=== PATIENT | female | born 1965 | race Caucasian/White ===

== ENCOUNTER 2023-04-10 17:28 | Day surgery (SDC) | payer OTHER, SELFPAY ==
[2023-04-10] VITALS (25 sets, daily range): BP systolic 69–114; BP diastolic 44–69; PULSE 63–81; RESP 16–18; TEMP 36.6–36.7; O2SAT 95–100; BMI 21.3; BMI 22.4
[2023-04-10] MEDS: 0.9 % SODIUM CHLORIDE 1000 ml 1,000 ML IV (17:53)
[2023-04-10] MEDS: HYDROmorphone 0.5 mg/0.5 ml inj IVP ×3 (17:54→22:00)
[2023-04-10] MEDS: ONDANSETRON 2 MG/ML inj 4 MG IVP (17:54)
--- NOTE | 2023-04-10 17:55 | CRLHL7_ITS ---
For Patients: As a result of the Century Cures Act, medical imaging exams and procedure reports are released immediately into your electronic medical record. You may view this report before your referring provider. If you have questions, please contact your health care provider. Indication: Fall Technique: Three views of the left wrist Comparison: None. Findings/Impression: There is a predominantly transverse, comminuted fracture of the distal radial metaphysis with mild impaction and dorsal displacement of the distal fracture segments. There is intra-articular extension of some of the fracture. Minimally displaced ulnar styloid process fracture. No suspicious osseous lesions. Moderate soft tissue swelling about the wrist. Dictated by Delio Prado MD @ 04/10/2023 7:47:08 PM (Electronically Signed)
--- NOTE | 2023-04-10 17:55 | CRLHL7_ITS ---
For Patients: As a result of the Cures Act, medical imaging exams and procedure reports are released immediately into your electronic medical record. You may view this report before your referring provider. If you have questions, please contact your health care provider. Indication: Fall Technique: Three views of the right wrist Comparison: None. Findings/Impression: There is a predominantly transverse, comminuted fracture of the distal radial metaphysis with moderate impaction and no significant dorsal/ventral displacement of the distal fracture segments. There is intra-articular extension of the fracture. Minimally displaced ulnar styloid process fracture. No suspicious osseous lesions. Mild soft tissue swelling about the wrist. Dictated by Delio Prado MD @ 04/10/2023 7:48:52 PM (Electronically Signed)
--- NOTE | 2023-04-10 18:00 | ED_ITS ---
HPI - General Adult General Chief complaint: Extremity Pain/Injury, Upper Stated complaint: injured wrists after fall Time Seen by Provider: 04/10/23 17:44 History of Present Illness HPI narrative: This 58-year-old female comes in with injury to both wrists that occurred just prior to arrival. She was outside and slipped on some ice and fell onto her outstretched hands. She has a deformity he obviously in her left wrist but also has suspicion of fracture in the right wrist. She denies hitting her head or having any other injury. She states that she last ate about 3 hours prior to arrival. Related Data Home Medications Medication Instructions Recorded Confirmed No Known Home Medications 04/10/23 04/10/23 Allergies Allergy/AdvReac Type Severity Reaction Status Date / Time No Known Drug Allergies Allergy Verified 04/10/23 17:54 Review of Systems Status of ROS: Reports: 10 or more systems reviewed and unremarkable except as noted in History and below Narrative: Constitutional: No fevers, no weight gain or loss. Eyes: No discharge. No vision changes. HENT: No congestion, no sore throat, no ear pain. Cardiovascular: No chest pain, no palpitations. Respiratory: No shortness of breath, no wheezes, no cough. Gastrointestinal: No abdominal pain, no vomiting, no diarrhea. Genitourinary: No dysuria, no hematuria. Musculoskeletal: Bilateral wrist injuries. Skin: No rashes, no pruritis. Neurological: No dizziness, weakness, sensory change, speech change. Endo/Heme/Allergies: No bruising or bleeding. No polydipsia. Pysch: no suicidality, no anxiety, no insomnia. All other systems reviewed and are negative. Exam Narrative: Exam Narrative: Constitutional: Well-developed, well-nourished, no acute distress. HEENT: Normocephalic, atraumatic. Neck: Normal range of motion. Nontender. Supple. Heart: Regular. No murmurs. Normal rate. Intact distal pulses. Lungs: Clear to auscultation. No chest discomfort. No wheezes, rhonchi, or rales. Abdomen: Normal bowel sounds. Nontender. No rebound tenderness. Genitalia: Deferred. Back: No midline tenderness. Normal range of motion. Extremities: Left wrist has deformity with swelling typical fracture. The right wrist also has some mild swelling and tenderness suspicious for fracture. Skin: Intact. No rash. Warm. No erythema or pallor. Neurologic: No altered sensation. No weakness. Alert and oriented. Psychiatric: No suicidality. No anxiety or depression. No insomnia. Nursing notes and vitals signs are reviewed. Const: Vital Signs, click to edit/add: Vital Signs - 24 hr 04/10/23 17:54 04/10/23 17:56 04/10/23 18:00 Temperature 97.9 F Pulse Rate 73 70 Pulse Rate [Pulse Oximeter] 72 Respiratory Rate 18 Blood Pressure Blood Pressure [Ri ght Upper Arm] 69/44 L Pulse Oximetry 100 100 100 Oxygen Delivery Me thod Room Air 04/10/23 18:02 04/10/23 18:24 04/10/23 18:26 Temperature Pulse Rate 69 66 66 Pulse Rate [Pulse Oximeter] Respiratory Rate Blood Pressure 97/63 101/59 L Blood Pressure [Ri ght Upper Arm] Pulse Oximetry 100 98 99 Oxygen Delivery Me thod 04/10/23 18:30 04/10/23 18:32 Temperature Pulse Rate 68 63 Pulse Rate [Pulse Oximeter] Respiratory Rate Blood Pressure 101/62 Blood Pressure [Ri ght Upper Arm] Pulse Oximetry 99 98 Oxygen Delivery Me thod Course Vital Signs Vital signs: Initial Vital Signs Temperature 97.9 F 04/10/23 17:54 Temperature Source Temporal Artery Scan 04/10/23 17:54 Pulse Rate 72 04/10/23 17:54 Pulse Rhythm Regular 04/10/23 17:54 Respiratory Rate 18 04/10/23 17:54 Blood Pressure 69/44 L 04/10/23 17:54 Blood Pressure Mean 52 L 04/10/23 17:54 Blood Pressure Position Sitting 04/10/23 17:54 Pulse Oximetry 100 04/10/23 17:54 Oxygen Delivery Method Room Air 04/10/23 17:54 Vital Signs Temperature 97.9 F 04/10/23 17:54 Pulse Rate 72 04/10/23 17:54 Respiratory Rate 18 04/10/23 17:54 Blood Pressure 69/44 L 04/10/23 17:54 Pulse Oximetry 100 04/10/23 17:54 Oxygen Delivery Method Room Air 04/10/23 17:54 Temperature 97.9 F 04/10/23 17:54 Pulse Rate 63 04/10/23 18:32 Respiratory Rate 18 04/10/23 17:54 Blood Pressure 101/62 04/10/23 18:32 Pulse Oximetry 98 04/10/23 18:32 Oxygen Delivery Method Room Air 04/10/23 17:54 Medications Administered Medications: Generic Name Dose Route Start Last Admin Trade Name Samuel PRN Reason Stop Dose Admin Hydromorphone HCl 0.5 mg 04/10/23 19:22 04/10/23 19:29 Hydromorphone 0.5 Mg/0.5 Ml Inj IVP 04/10/23 19:23 0.5 mg ONCE ONE Administration Discontinued Medications Generic Name Dose Route Start Last Admin Trade Name Michaelq PRN Reason Stop Dose Admin Hydromorphone HCl 0.5 mg 04/10/23 17:54 04/10/23 17:54 Hydromorphone 0.5 Mg/0.5 Ml Inj IVP 04/10/23 17:55 0.5 mg ONCE ONE Administration Sodium Chloride 1,000 mls @ 1,000 mls/hr 04/10/23 18:00 04/10/23 17:53 0.9 % Sodium Chloride 1000 Ml IV 04/10/23 18:59 1,000 mls/hr .Q1H MITESH Administration Ondansetron HCl 4 mg 04/10/23 17:54 04/10/23 17:54 Ondansetron 2 Mg/Ml Inj IVP 04/10/23 17:55 4 mg ONCE ONE Administration Medical Decision Making MDM Narrative Medical decision making narrative: This patient comes in with injury to both wrists from a fall that occurred just prior to arrival. X-ray images show that both wrists have fractures that need attention. I spoke with the orthopedic surgeon physician housekeeper/laundry assistant product safety consultant who spoke with the surgeon who is willing to come in tomorrow morning on this holiday weekend to attend to repair these wrists as both wrists are fractured and would thus disable her ability to use or arms. An IV was established with the patient did receive a L of normal saline and 2 separate doses of Dilaudid 0.5 mg. Her blood pressure is on the low side but she tolerated this medicine well. I did use Ortho Glass material to place volar splints on both wrists and I did not do any manipulation of the injury as surgery is scheduled for tomorrow morning. I spoke with Dr. Cook who agrees to bring her into the hospital overnight for management of her condition. Imaging Data XR R Wrist: Radiologist's impression: There is a predominantly transverse, comminuted fracture of the distal radial metaphysis with moderate impaction and no significant dorsal/ventral displacement of the distal fracture segments. There is intra-articular extension of the fracture. Minimally displaced ulnar styloid process fracture. XR L Wrist: Radiologist's impression: There is a predominantly transverse, comminuted fracture of the distal radial metaphysis with mild impaction and dorsal displacement of the distal fracture segments. There is intra-articular extension of some of the fracture. Minimally displaced ulnar styloid process fracture. Discharge Plan Discharge Prescriptions: No Action No Known Home Medications
--- NOTE | 2023-04-10 18:31 | ED.NURSE ---
Wedding ring taken off left finger and put into urine cup and labeled with patient name on cup. did take the urine cup with ring and he placed it into his left jacket pocket.
[2023-04-10 21:26] LABS: Albumin* 4.7 g/dL (3.3-5.0); Chloride* 102 mmol/L (96-114); Potassium* 3.8 mmol/L (3.6-5.1); Sodium* 137 mmol/L (135-149)
[2023-04-10 21:28] LABS: Creatinine* 0.5 mg/dL (0.5-1.5); Est. Creatinine Clearance* 123.72; Estimated Glomerular Filt Rate 109 ml/min
[2023-04-10 21:29] LABS: Anion Gap 10 mEq/L (7-15); Blood Urea Nitrogen* 14 mg/dL (7-30); Calcium* 9.3 mg/dL (8.4-10.6); Carbon Dioxide* 25 mmol/L (20-32); Glucose* 118 mg/dL (60-115); Phosphorus* 3.5 mg/dL (2.5-4.5)
[2023-04-10 21:30] LABS: Hematocrit 37.2 % (33.0-51.0); Mean Corpuscular HGB Conc 32 gm/dL (32-36); Mean Corpuscular Hemoglobin 31 pg (26-34); Mean Corpuscular Volume 97 fL (80-100); Platelet Count* 327 K/uL (140-440); Red Blood Count 3.82 m/uL (4.00-5.20); White Blood Count* 10.05 K/uL (4.50-11.00)
[2023-04-10 21:32] LABS: Slide Review Reflex No
--- NOTE | 2023-04-10 21:35 | P.IMHP_ITS ---
Hospitalist- H&P: HPI History of Present Illness Date Seen: 04/10/23 Chief complaint: injured wrists after fall Narrative: Karo Baca is a 58 year old woman who was in her usual healthy state until she slipped while walking on an icy surface outside and fell, fracturing both wrists as she attempted to soften her landing with her hands outstretched in front of her. She was at her work when this injury occurred. Immediately felt pain and noted the deformity. Was brought into the emergency department promptly. X- rays demonstrated bilateral wrist fractures. Orthopedic surgery was contacted, they reviewed the x-rays, agreed to bring the patient to the OR tomorrow morning for surgical stabilization. Patient is admitted for same-day surgery. Had no other injuries. Denies pain elsewhere. Did not strike her head. No loss of consciousness. Review of Systems Status of ROS: Reports: 10 or more systems reviewed and unremarkable except as noted in History and below Narrative: Generally healthy. On no prescription medications. Does take [id number] multivitamins and supplements. No other recent injury. No recent travel. No recent illness. Denies fevers, rigors, diaphoresis. Denies chest heaviness, pressure, tightness, or pain. Denies cough, dyspnea at rest, paroxysmal nocturnal dyspnea, orthopnea. Denies syncope or near-syncope. Denies orthostasis, dizziness, lightheadedness. Denies chest palpitations or chest fluttering. Denies lower extremity edema. Denies nausea or vomiting. Denies abdominal pain. Bowel and bladder function are satisfactory. Denies constipation or diarrhea. Denies dysuria, urgency, frequency, hematuria. No open wounds. No focal motor neurologic deficits. [facility] Medical History (Updated 04/10/23 @ 21:50 by Jarrett Cook MD) Former smoker, stopped smoking in distant past ?Z87.891 - Personal history of nicotine dependence (ICD-10) History of supraventricular tachycardia ?Z86.79 - Personal history of other diseases of the circulatory system (ICD- 10) Surgical History (Updated 04/10/23 @ 21:29 by Jarrett Cook MD) Status post section ?Z98.891 - History of uterine scar from previous surgery (ICD-10) Family History (Updated 04/10/23 @ 21:35 by Jarrett Cook MD) Maternal Grandfather Lung cancer Maternal Grandmother Stomach cancer Son Crohn's disease Father Heart disease Stroke Paternal Grandfather Heart disease Paternal Grandmother Heart disease Social History (Updated 04/10/23 @ 21:31 by Jarrett Cook MD) Narrative: . lives with . 1 pet dog. 2 adult children. 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 Former smoker. Consumes 4-6 standard alcoholic beverages per week. Denies street or recreational drugs. What is your current living situation?: I presently have a place to live Problems where you live: no known problems Problems where you live details: none In the past 12 months, utilities in danger of being shut off: no In past 12 months, lack of transportation kept you from medical appts, meetings, work, or getting things needed for daily living: no In the past 12 mos, have been you worried that your food would run out before you had money to buy more?: never true In the past 12 mos, the food you bought just didn't last and you didn't have money to buy more?: never true Highest level of school completed/degree received: Associate degree: academic program Smoking Status: Former smoker How often do you have a drink containing alcohol: 2-3 times a week Alcohol type: beer, wine and hard liquor How many standard drinks containing alcohol do you have on a typical day: 1 or 2 How often do you have six or more drinks on one occasion: Less than monthly AUDIT-C Alcohol total score: 4 Non-prescribed substance use: denies use Caffeine: Yes (coffee) How often does anyone, including family, friends and others, physically hurt you : never How often does anyone, including family, friends and others, insult or talk down to you: never How often does anyone, including family, friends and others, threaten you with harm: never How often does anyone, including family, friends and others, scream or curse at you: never service: No Meds Home Medications and Allergies Home Medications Medication Instructions Recorded Confirmed Type No Known Home Medications 04/10/23 04/10/23 History Allergies Allergy/AdvReac Type Severity Reaction Status Date / Time No Known Drug Allergies Allergy Verified 04/10/23 17:54 Exam Narrative: Exam Narrative: I 1st examined the patient in the emergency department and secondly when she is in her hospital room. When I examine her her is nearby. By the time I see her she is comfortable and in no acute distress. She has bilateral wrist splints in place. Can move all fingers. Vision and hearing are grossly normal. Alert and oriented to self, place, time, situation. From the, articulate, cooperative. Appears appropriately upset. Normal tympanic membranes. Midline nasal septum. Dentition in good repair. Moist buccal mucosa. No icterus or conjunctival injection. Pupils equally round and reactive to light and accommodation. Conjugate gaze. Extraocular muscles are intact. Neck is supple. Midline trachea. No head and neck lymphadenopathy. Lungs are clear to auscultation. Chest wall excursions are full. Heart tones with regular rhythm, normal S1-S2 without murmur, gallop or rub. PMI is not laterally displaced. Abdomen with active bowel sounds, soft, nontender. No organomegaly or masses. Upper extremities with wrist splints on bilaterally. Lower extremities with full movement and palpable pulses. No focal motor neurologic deficits. Skin is intact. Const: Vital Signs, click to edit/add: Vital Signs - 24 hr 04/10/23 17:54 04/10/23 17:56 04/10/23 18:00 Temperature 97.9 F Pulse Rate 73 70 Pulse Rate [Pulse Oximeter] 72 Respiratory Rate 18 Blood Pressure Blood Pressure [Le ft Arm] Blood Pressure [Ri ght Upper Arm] 69/44 L Pulse Oximetry 100 100 100 Oxygen Delivery Me thod Room Air 04/10/23 18:02 04/10/23 18:24 04/10/23 18:26 Temperature Pulse Rate 69 66 66 Pulse Rate [Pulse Oximeter] Respiratory Rate Blood Pressure 97/63 101/59 L Blood Pressure [Le ft Arm] Blood Pressure [Ri ght Upper Arm] Pulse Oximetry 100 98 99 Oxygen Delivery Me thod 04/10/23 18:30 04/10/23 18:32 04/10/23 18:33 Temperature Pulse Rate 68 63 67 Pulse Rate [Pulse Oximeter] Respiratory Rate Blood Pressure 101/62 Blood Pressure [Le ft Arm] Blood Pressure [Ri ght Upper Arm] Pulse Oximetry 99 98 99 Oxygen Delivery Me thod 04/10/23 18:45 04/10/23 18:47 04/10/23 19:00 Temperature Pulse Rate 68 64 67 Pulse Rate [Pulse Oximeter] Respiratory Rate Blood Pressure 98/59 L Blood Pressure [Le ft Arm] Blood Pressure [Ri ght Upper Arm] Pulse Oximetry 99 99 98 Oxygen Delivery Me thod 04/10/23 19:02 04/10/23 19:15 04/10/23 19:16 Temperature Pulse Rate 70 71 72 Pulse Rate [Pulse Oximeter] Respiratory Rate Blood Pressure 94/50 L 89/62 L Blood Pressure [Le ft Arm] Blood Pressure [Ri ght Upper Arm] Pulse Oximetry 99 100 100 Oxygen Delivery Me thod 04/10/23 19:20 04/10/23 19:30 04/10/23 19:32 Temperature Pulse Rate 70 69 75 Pulse Rate [Pulse Oximeter] Respiratory Rate Blood Pressure 88/59 L 88/54 L Blood Pressure [Le ft Arm] Blood Pressure [Ri ght Upper Arm] Pulse Oximetry 100 98 95 Oxygen Delivery Me thod 04/10/23 19:45 04/10/23 19:47 04/10/23 20:01 Temperature Pulse Rate 75 Pulse Rate [Pulse Oximeter] Respiratory Rate Blood Pressure 99/58 L 100/60 Blood Pressure [Le ft Arm] Blood Pressure [Ri ght Upper Arm] Pulse Oximetry 97 Oxygen Delivery Me thod 04/10/23 20:16 04/10/23 20:32 04/10/23 20:57 Temperature 98.0 F Pulse Rate Pulse Rate [Pulse Oximeter] 81 Respiratory Rate 18 Blood Pressure 99/59 L 97/59 L Blood Pressure [Le ft Arm] 114/69 Blood Pressure [Ri ght Upper Arm] Pulse Oximetry 96 Oxygen Delivery Me thod Room Air 04/10/23 20:57 Temperature Pulse Rate Pulse Rate [Pulse Oximeter] Respiratory Rate 18 Blood Pressure Blood Pressure [Le ft Arm] Blood Pressure [Ri ght Upper Arm] Pulse Oximetry 97 Oxygen Delivery Me thod Room Air Documenting provider has reviewed patient's vital signs: yes Hospitalist - H&P: Result Labs Labs: Short CBC 04/10/23 Range/Units 17:53 WBC 10.05 (4.50-11.00) K/uL Hgb 12.0 (12.0-16.0) gm/dL Hct 37.2 (33.0-51.0) % Plt Count 327 (140-440) K/uL BMP 04/10/23 17:53 Sodium 137 Potassium 3.8 Chloride 102 Carbon Dioxide 25 BUN 14 Creatinine 0.5 Glucose 118 H Calcium 9.3 Liver Function 04/10/23 Range/Units 17:53 Albumin 4.7 (3.3-5.0) g/dL Imaging X-ray of right wrist: Attestation: I have reviewed the pertinent imaging results. Radiologist's impression: Findings/Impression: There is a predominantly transverse, comminuted fracture of the distal radial metaphysis with moderate impaction and no significant dorsal/ventral displacement of the distal fracture segments. There is intra-articular extension of the fracture. Minimally displaced ulnar styloid process fracture. No suspicious osseous lesions. Mild soft tissue swelling about the wrist. X-ray of left wrist: Attestation: I have reviewed the pertinent imaging results. Radiologist's impression: Findings/Impression: There is a predominantly transverse, comminuted fracture of the distal radial metaphysis with mild impaction and dorsal displacement of the distal fracture segments. There is intra-articular extension of some of the fracture. Minimally displaced ulnar styloid process fracture. No suspicious osseous lesions. Moderate soft tissue swelling about the wrist. Assessment and Plan Assessment and plan (1) Left wrist fracture: Problem comment: - Occurred 04/10/2023 s/p fall from standing state. - 04/10/2023 x-ray, Findings/Impression: There is a predominantly transverse, comminuted fracture of the distal radial metaphysis with mild impaction and dorsal displacement of the distal fracture segments. There is intra-articular extension of some of the fracture. Minimally displaced ulnar styloid process fracture. No suspicious osseous lesions. Moderate soft tissue swelling about the wrist. - Dr. Watson Hanley will surgically stabilize in OR on 04/11/2023 Status: Acute (2) Right wrist fracture: Problem comment: - Occurred 04/10/2023 s/p fall from standing state. - 04/10/2023 x-ray, Findings/Impression: There is a predominantly transverse, comminuted fracture of the distal radial metaphysis with moderate impaction and no significant dorsal/ventral displacement of the distal fracture segments. There is intra-articular extension of the fracture. Minimally displaced ulnar styloid process fracture. No suspicious osseous lesions. Mild soft tissue swelling about the wrist. - Dr. Watson Hanley will surgically stabilize in OR on 04/11/2023 Status: Acute (3) History of supraventricular tachycardia: Problem comment: - s/p cardiac ablation therapy 06/02/20, [facility], [place], [place], Dr. Mitchell. - asymptomatic status post ablation, and has never used any medications Status: Acute Plan 1. Reviewed impression with patient and . 2. Answered their questions to their satisfaction. 3. They are agreeable to admission for same-day surgery for consultation with Orthopedic surgery for anticipated surgical stabilization of these unstable fractures in the OR as early as tomorrow. No contraindication for anesthesia or surgery. 4. NPO after midnight. Analgesics and antiemetics p.r.n.. 5. Obtain an electrocardiogram. Telemetry. 6. She designates her as her primary power of employment attorney for health should that be required. Requests full resuscitation in the event of cardiopulmonary demise. 7. Physical therapy and occupational therapy consultation. 8. Initiated discussion with them about how she will need extensive cares and support now for several weeks to come. They will consider supportive measures that they are aware of and will discuss with our hospital staff about other possible supportive measures in the community during this vulnerable time for her. 9. Patient and are agreeable with above stated plans and recommendations.
[2023-04-10] MEDS: OMEPRAZOLE 20 MG CAPSULE DR PO (22:01)
[2023-04-10] MEDS: SODIUM CHLORIDE 0.9 % (FLUSH) 10 ML SYRINGE 5 ML IVF (22:01)
[2023-04-10] MEDS: OXYCODONE 5 MG TABLET PO (23:43)
[2023-04-10] MEDS: ACETAMINOPHEN 325 MG TABLET 650 MG PO (23:44)
[2023-04-10] MEDS: 0.9 % SODIUM CHLORIDE 1000 ml 1,000 ML 125 ML IV (23:44)
[2023-04-11] VITALS (26 sets, daily range): BP systolic 81–117; BP diastolic 51–71; PULSE 55–85; RESP 12–16; TEMP 36.2–36.9; O2SAT 92–96
[2023-04-11] MEDS: HYDROmorphone 0.5 mg/0.5 ml inj IVP ×3 (01:06→15:32)
[2023-04-11] MEDS: SODIUM CHLORIDE 0.9 % (FLUSH) 10 ML SYRINGE 5 ML IVF ×4 (01:07→17:16)
--- NOTE | 2023-04-11 06:26 | PC.NURSE ---
Pt able to sleep a bit during the night, tolerated ambulating halls x1 and to br x2, needs assist for ADL's. L wrist pain rated 1-4/10, tolerable per patient, R wrist pain is more severe than L, pt rates R wrist pain 4-9/10. PRN pain medications administered with some relief to R wrist and total relief to L. CMS intact to bilateral hands, pt has sensation and able to wiggle fingers bilaterally as well, warm to touch and good cap refills as well as color appropriate. BUE splinted and wrapped. NPO since midnight.
--- NOTE | 2023-04-11 08:39 | REH.PT ---
PT orders received, chart reviewed. Patient is having surgery this morning therefore evaluation will be put on hold. Will continue to follow.
--- NOTE | 2023-04-11 09:02 | PM.ORCN ---
History of Present Illness HPI Date Seen: 04/11/23 Chief complaint: injured wrists after fall Narrative: Karo is a pleasant 58 year old female who was in her usual healthy state until she slipped while walking on an icy surface outdoors on 04/10/2023. She fell a on outstretched bilateral upper extremities resulting in significant pain and dysfunction. She presents [facility]. X-rays were obtained revealed bilateral distal radius fractures. Comminution, intra-articular extension, and significant angulation/displacement noted. Orthopedics was consulted to evaluate and consider surgical intervention. Beyond that, she had no other injuries. Did not strike her head. No loss of consciousness. [facility] Medical History Former smoker, stopped smoking in distant past ?Z87.891 - Personal history of nicotine dependence (ICD-10) History of supraventricular tachycardia ?Z86.79 - Personal history of other diseases of the circulatory system (ICD-10) Surgical History Status post section ?Z98.891 - History of uterine scar from previous surgery (ICD-10) Family History Maternal Grandfather Lung cancer Maternal Grandmother Stomach cancer Son Crohn's disease Father Heart disease Stroke Paternal Grandfather Heart disease Paternal Grandmother Heart disease Social History Narrative: . lives with . 1 pet dog. 2 adult children. 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 Former smoker. Consumes 4-6 standard alcoholic beverages per week. Denies street or recreational drugs. What is your current living situation?: I presently have a place to live Problems where you live: no known problems Problems where you live details: none In the past 12 months, utilities in danger of being shut off: no In past 12 months, lack of transportation kept you from medical appts, meetings, work, or getting things needed for daily living: no In the past 12 mos, have been you worried that your food would run out before you had money to buy more?: never true In the past 12 mos, the food you bought just didn't last and you didn't have money to buy more?: never true Highest level of school completed/degree received: Associate degree: academic program Smoking Status: Former smoker How often do you have a drink containing alcohol: 2-3 times a week Alcohol type: beer, wine and hard liquor How many standard drinks containing alcohol do you have on a typical day: 1 or 2 How often do you have six or more drinks on one occasion: Less than monthly AUDIT-C Alcohol total score: 4 Non-prescribed substance use: denies use Caffeine: Yes (coffee) How often does anyone, including family, friends and others, physically hurt you: never How often does anyone, including family, friends and others, insult or talk down to you: never How often does anyone, including family, friends and others, threaten you with harm: never How often does anyone, including family, friends and others, scream or curse at you: never service: No Meds Home Medications and Allergies Home Medications Medication Instructions Recorded Confirmed Type No Known Home Medications 04/10/23 04/10/23 History Allergies Allergy/AdvReac Type Severity Reaction Status Date / Time No Known Drug Allergies Allergy Verified 04/10/23 17:54 Ortho Exam Narrative Exam Narrative: Alert and orient x3. No acute distress. Nonlabored breathing. Resting in the hospital bed supine. Bilateral upper extremity splints noted to be in place. The extent from near her fingertips to her mid arm on the volar aspect. Her is in the room with her. Bilateral upper extremities show neurologic function to be intact in the median, radial, and ulnar nerve distribution both sensory light touch and motor function. Digits are pink, warm, brisk capillary refill. Tender to palpation of the distal radius bilaterally. Generalized swelling is noted around bilateral wrists after removal of the splints. Early ecchymosis also noted. She is nontender around the elbow or shoulder otherwise. No other lacerations or abrasions appreciated on her upper body or around her head. Const Vital Signs, click to edit/add: Vital Signs - 24 hr 04/10/23 17:54 04/10/23 17:56 04/10/23 18:00 Temperature 97.9 F Pulse Rate 73 70 Pulse Rate [Pulse Oximeter] 72 Respiratory Rate 18 Blood Pressure Blood Pressure [Left Arm] Blood Pressure [Right Arm] Blood Pressure [Right Upper Arm] 69/44 L Pulse Oximetry 100 100 100 Oxygen Delivery Method Room Air 04/10/23 18:02 04/10/23 18:24 04/10/23 18:26 Temperature Pulse Rate 69 66 66 Pulse Rate [Pulse Oximeter] Respiratory Rate Blood Pressure 97/63 101/59 L Blood Pressure [Left Arm] Blood Pressure [Right Arm] Blood Pressure [Right Upper Arm] Pulse Oximetry 100 98 99 Oxygen Delivery Method 04/10/23 18:30 04/10/23 18:32 04/10/23 18:33 Temperature Pulse Rate 68 63 67 Pulse Rate [Pulse Oximeter] Respiratory Rate Blood Pressure 101/62 Blood Pressure [Left Arm] Blood Pressure [Right Arm] Blood Pressure [Right Upper Arm] Pulse Oximetry 99 98 99 Oxygen Delivery Method 04/10/23 18:45 04/10/23 18:47 04/10/23 19:00 Temperature Pulse Rate 68 64 67 Pulse Rate [Pulse Oximeter] Respiratory Rate Blood Pressure 98/59 L Blood Pressure [Left Arm] Blood Pressure [Right Arm] Blood Pressure [Right Upper Arm] Pulse Oximetry 99 99 98 Oxygen Delivery Method 04/10/23 19:02 04/10/23 19:15 04/10/23 19:16 Temperature Pulse Rate 70 71 72 Pulse Rate [Pulse Oximeter] Respiratory Rate Blood Pressure 94/50 L 89/62 L Blood Pressure [Left Arm] Blood Pressure [Right Arm] Blood Pressure [Right Upper Arm] Pulse Oximetry 99 100 100 Oxygen Delivery Method 04/10/23 19:20 04/10/23 19:30 04/10/23 19:32 Temperature Pulse Rate 70 69 75 Pulse Rate [Pulse Oximeter] Respiratory Rate Blood Pressure 88/59 L 88/54 L Blood Pressure [Left Arm] Blood Pressure [Right Arm] Blood Pressure [Right Upper Arm] Pulse Oximetry 100 98 95 Oxygen Delivery Method 04/10/23 19:45 04/10/23 19:47 04/10/23 20:01 Temperature Pulse Rate 75 Pulse Rate [Pulse Oximeter] Respiratory Rate Blood Pressure 99/58 L 100/60 Blood Pressure [Left Arm] Blood Pressure [Right Arm] Blood Pressure [Right Upper Arm] Pulse Oximetry 97 Oxygen Delivery Method 04/10/23 20:16 04/10/23 20:32 04/10/23 20:57 Temperature 98.0 F Pulse Rate Pulse Rate [Pulse Oximeter] 81 Respiratory Rate 18 Blood Pressure 99/59 L 97/59 L Blood Pressure [Left Arm] 114/69 Blood Pressure [Right Arm] Blood Pressure [Right Upper Arm] Pulse Oximetry 96 Oxygen Delivery Method Room Air 04/10/23 20:57 04/10/23 23:00 04/10/23 23:00 Temperature 98.0 F Pulse Rate Pulse Rate [Pulse Oximeter] 68 Respiratory Rate 18 18 16 Blood Pressure Blood Pressure [Left Arm] 102/52 L Blood Pressure [Right Arm] Blood Pressure [Right Upper Arm] Pulse Oximetry 97 97 97 Oxygen Delivery Method Room Air Room Air Room Air 04/11/23 00:25 04/11/23 03:00 04/11/23 07:36 Temperature Pulse Rate 71 66 Pulse Rate [Pulse Oximeter] 61 Respiratory Rate 12 Blood Pressure Blood Pressure [Left Arm] Blood Pressure [Right Arm] Blood Pressure [Right Upper Arm] Pulse Oximetry Oxygen Delivery Method 04/11/23 08:51 04/11/23 08:51 Temperature 98.2 F Pulse Rate Pulse Rate [Pulse Oximeter] 77 Respiratory Rate 16 Blood Pressure Blood Pressure [Left Arm] Blood Pressure [Right Arm] 111/59 L Blood Pressure [Right Upper Arm] Pulse Oximetry 96 96 Oxygen Delivery Method Room Air Room Air Results Labs Labs: Laboratory Results - last 48 hr 04/10/23 17:53 WBC 10.05 RBC 3.82 L Hgb 12.0 Hct 37.2 MCV 97 MCH 31 MCHC 32 Plt Count 327 Sodium 137 Potassium 3.8 Chloride 102 Carbon Dioxide 25 Anion Gap 10 BUN 14 Creatinine 0.5 Estimated Creat Clear 123.72 Estimated GFR 109 Glucose 118 H Calcium 9.3 Phosphorus 3.5 Albumin 4.7 Diagnostic results Additional Comments: Three views of bilateral wrists from [facility] dated 04/10/2023 were ordered by a different provider and reviewed by me. On the left-comminuted, intra-articular, 30+ degree dorsally angulated distal radius fracture noted with significant shortening (ulnar positive variance of 6+ mm. And ulnar styloid fragment is also noted but poorly visualized on these radiographs. Generalized soft tissue swelling is noted around the wrist region. Incidentally, moderate STT joint osteoarthrosis seen by joint space narrowing and osteophyte formation. On the right-similarly noted is a distal radius fracture with intra-articular extension, significant comminution, dorsal angulation of 17-18 degrees. Ulnar positive variance of 3-4 mm. Small mildly displaced ulnar styloid fragment. Incidentally, moderate-severe STT joint osteoarthrosis seen with joint space narrowing and osteophyte formation. Assessment and Plan Assessment and plan (1) Left wrist fracture: Problem comment: - Occurred 04/10/2023 s/p fall from standing state. - 04/10/2023 x-ray, Findings/Impression: There is a predominantly transverse, comminuted fracture of the distal radial metaphysis with mild impaction and dorsal displacement of the distal fracture segments. There is intra-articular extension of some of the fracture. Minimally displaced ulnar styloid process fracture. No suspicious osseous lesions. Moderate soft tissue swelling about the wrist. - Dr. Watson Hanley will surgically stabilize in OR on 04/11/2023 Status: Acute Total time spent: Total time spent is greater than 50% in coordination of care (as documented) at patient's floor/unit and/or counseling patient: (2) Right wrist fracture: Problem comment: - Occurred 04/10/2023 s/p fall from standing state. - 04/10/2023 x-ray, Findings/Impression: There is a predominantly transverse, comminuted fracture of the distal radial metaphysis with moderate impaction and no significant dorsal/ventral displacement of the distal fracture segments. There is intra-articular extension of the fracture. Minimally displaced ulnar styloid process fracture. No suspicious osseous lesions. Mild soft tissue swelling about the wrist. - Dr. Watson Hanley will surgically stabilize in OR on 04/11/2023 Status: Acute Total time spent: Total time spent is greater than 50% in coordination of care (as documented) at patient's floor/unit and/or counseling patient: (3) History of supraventricular tachycardia: Problem comment: - s/p cardiac ablation therapy 06/02/20, [place], [place], Dr. Mitchell. - asymptomatic status post ablation, and has never used any medications Status: Acute Total time spent: Total time spent is greater than 50% in coordination of care (as documented) at patient's floor/unit and/or counseling patient: Plan We had a good discussion today with the patient and her . I help him understand her plate. This is a difficult situation as both distal radius fractures are significant and each is worthy of ORIF. We did discuss the potential of nonoperative versus operative intervention. Again in my opinion, I do think surgery is indicated. This would be for bilateral distal radius ORIF. Risks, benefits, and alternatives were discussed in great detail. I believe all questions were answered. Will plan to do surgery today. She remains NPO. Pain is reasonably controlled currently. We did have a significant discussion also about postoperative pain control. We talked a lot about the various choices of bilateral upper extremity nerve blocks verses unilateral versus local anesthetic versus no block. In my opinion, I do think doing a unilateral regional nerve block and on the contralateral side doing a local anesthetic to help with some postop pain is reasonable. Not in both arms out with regional nerve blocks may be difficult for even the most basic of tasks such as scratching and itch or pressing a button for other minor tasks. I believe all questions were answered. Indeed she would like to proceed with bilateral upper extremity distal radius ORIF today. After the surgery, I would anticipate she would be able to be discharged to home today.
[2023-04-11] MEDS: LACTATED RINGERS 1000 ML 1,000 ML 125 ML IV ×2 (09:15→11:25)
--- NOTE | 2023-04-11 09:30 | CRLHL7_ITS ---
For Patients: As a result of the Cures Act, medical imaging exams and procedure reports are released immediately into your electronic medical record. You may view this report before your referring provider. If you have questions, please contact your health care provider. Indication: Left wrist ORIF Technique: Three fluoroscopic images of the left wrist. Fluoroscopic time 18.2 seconds. IMPRESSION: Fluoroscopic guidance for ORIF distal radial fracture. Dictated by Ren Dan MD @ 04/13/2023 8:27:36 AM (Electronically Signed)
--- NOTE | 2023-04-11 09:30 | CRLHL7_ITS ---
For Patients: As a result of the Cures Act, medical imaging exams and procedure reports are released immediately into your electronic medical record. You may view this report before your referring provider. If you have questions, please contact your health care provider. Indication: Right wrist ORIF Technique: Two fluoroscopic images of the right wrist. Fluoroscopic time 25.4 seconds. IMPRESSION: Fluoroscopic guidance for ORIF distal radial fracture. Dictated by Ren Dan MD @ 04/13/2023 8:28:49 AM (Electronically Signed)
[2023-04-11] MEDS: CEFAZOLIN 2 GM in 0.9 % SODIUM CHLORIDE Mini-bag 100 ML IVPB (09:40)
[2023-04-11] MEDS: BUPIVACAINE 0.5% 30 ML 3.5 ML INJECTION (09:51)
[2023-04-11] MEDS: LIDOCAINE 2%-EPI 1:200,000 20 ML 3.5 ML TOPICAL (09:51)
--- NOTE | 2023-04-11 09:55 | REH.OT ---
Orders received for OT eval and treat. Patient having surgery on bilateral wrists. Will evaluate as appropriate on 04/12/23
--- NOTE | 2023-04-11 10:50 | W.PM.NB ---
Nerve Block Nerve Block Time Seen by Provider: 09:30 Date Seen: 04/11/23 Type of block requested by surgeon for post-operative analgesia: axillary Side: left Time out performed: Yes Verification of patient name: Yes Verification of date of : Yes Site marking: site marked Name of person performing procedure: Yaya Jerry Continuous monitoring Was continuous monitoring of O2 sat, B/P, monitoring and evaluation advisor, recorded every 15 minutes?: Yes Procedure Checklist: sterile prep, needles and gloves Ultrasound guided. Images saved: Yes Medications given in 5ml increments after negative aspiration: Ropivicaine %: 0.5 mL: 20 Needle gauge: 20 Decadron (mg): 10 Precedex (mcg): 25 Patient tolerated procedure well: Yes Additional comments: Injected in 5mL increments after negative aspiration Block Charges Block Charge (with Pro Fee): Axillary Nerve Use of Ultrasound Machine for Block: Yes- US Guidance/pain block
--- NOTE | 2023-04-11 11:24 | PM.ORPRC ---
Procedure Note Date of procedure: 04/11/23 Procedure: PREOPERATIVE DIAGNOSES: 1. Bilateral distal radius fracture (both were intra-articular, comminuted, dorsally angulated, and shortened - unstable) POSTOPERATIVE DIAGNOSES: 1. Bilateral distal radius fracture (both were intra-articular, comminuted, dorsally angulated, and shortened - unstable) NAME OF OPERATION: 1. Bilateral distal radius open reduction with internal fixation of intraarticular fracture (3+ parts) 2. 91667 - intraoperative fluoroscopy >1 hour. SURGEON: Watson Hanley MD EQUIPMENT OPERATOR WAGE HAND: Jocelin Chinchilla PA-C - Of note, an medicine assistant was critical for this case to aide in patient positioning, limb manipulation, tissue retraction, closure, and splinting. ANESTHESIA: General endotracheal anesthetic plus Supraclavicular block on the left upper extremity. IMPLANTS: Synthes dual column volar locking plate with 2.7 mm nonlocking cortical screw and 2.4 mm locking proximal screws. Also 2.4 mm distal locking pegs (multiple). TOURNIQUET: 53 minutes at 225 torr on the right; 40 minutes at 225 torr on the left. INDICATIONS: The patient is a pleasant, 58-year-old female who simply walked outdoors on 04/10/2023. It was slippery. She fell on outstretched bilateral hands/upper extremities. Resulted in severe pain and dysfunction. She presented [facility]. X-rays were obtained revealed comminuted intra-articular distal radius fractures of bilateral upper extremities. Given her inability to use either upper extremity, surgery was recommended to improve the position and stablize the fractures. FINDINGS: Right side: Closed, comminuted, dorsally angulated intra-articular with multiple splits and significant shortening to the distal radius fracture. Mildly displaced ulnar styloid fragment. Left side: Closed, comminuted, dorsally angulated intra-articular and significant shortened distal radius fracture. Mildly displaced ulnar styloid fracture fragment. PROCEDURE: Following a thorough discussion of risks, benefits, and alternatives, consent was obtained and the operative extremity was marked. The patient was brought to the operating room and placed supine on the operating table. Induction of anesthesia was achieved. Appropriate time out was performed identifying proper patient, site and procedure. 1 gram of iv Ancef was administered within 1 hour of incision preoperatively. Bilateral upper extremities were prepped and draped in the appropriate sterile fashion using ChloraPrep prep. We began on the right side. The limb was exsanguinated and the tourniquet inflated. A longitudinal incision was made overlying the FCR tendon. Sharp incision through skin and subcutaneous tissue allowed identification of the FCR tendon. The superficial sheath was sharply divided, the tendon retracted ulnarly, and the deep fascial sheath also released. The FPL was retracted ulnarly and the pronator quadratus was sharply released from the radial border of the radius and subperiosteally elevated. The fracture was encountered and cleared of interposed periosteum / fracture hematoma. Should this fracture was tremendously comminuted with multiple intra-articular splits and 5+ fragments noted. A reduction was performed and the appropriate plate selected. Temporary stabilization allowed C-arm fluoroscopy to confirm proper fracture reduction and plate positioning. The oblong hole was filled with a nonlocking screw followed by multiple distal locking pegs being careful to keep these in subchondral bone and extraarticular. Of note, the distal fragment did require specific compression after securing the intra-articular split pieces one by one. This allowed us to realign the articular surface and connected to the shaft appropriately. Finally, the remaining proximal shaft screws were drilled and placed. Fluoroscopic imaging confirmed the improved position and showed the fracture to be stable. At this stage, the wound was thoroughly irrigated with normal saline. Closure performed with 0 Vicryl for the pronator quadratus, followed by deflation of the tourniquet. All major bleeding points were cauterized. Closure was then completed with 3-0 Vicryl for the subcutaneous, and 4-0 statafix for subcuticular closure. While closure was being performed on the right upper extremity by Rosy carvalho, I began on the left upper extremity in a similar fashion; the limb was exsanguinated and the tourniquet inflated. A longitudinal incision was made overlying the FCR tendon. Sharp incision through skin and subcutaneous tissue allowed identification of the FCR tendon. The superficial sheath was sharply divided, the tendon retracted ulnarly, and the deep fascial sheath also released. The FPL was retracted ulnarly and the pronator quadratus was sharply released from the radial border of the radius and subperiosteally elevated. The fracture was encountered and cleared of interposed periosteum / fracture hematoma. Should this fracture was tremendously comminuted with multiple intra-articular splits and 5+ fragments noted. A reduction was performed and the appropriate plate selected. Temporary stabilization allowed C-arm fluoroscopy to confirm proper fracture reduction and plate positioning. The oblong hole was filled with a nonlocking screw followed by multiple distal locking pegs being careful to keep these in subchondral bone and extraarticular. On this left side, the comminution was not quite as great. There still were 3+ fragments, but not as many intra-articular splits as the right side had. We were able to realign the articular surface and connect it to the shaft appropriately. Finally, the remaining proximal shaft screws were drilled and placed. Fluoroscopic imaging confirmed the improved position and showed the fracture to be stable. At this stage, the wound was thoroughly irrigated with normal saline. Closure performed with 0 Vicryl for the pronator quadratus, followed by deflation of the tourniquet. All major bleeding points were cauterized. Closure was then completed with 3-0 Vicryl for the subcutaneous, and 4-0 statafix for subcuticular closure. Dressings were applied along with a volar/dorsal splint. The patient was awoken from anesthesia and transferred to PACU in stable condition. PLAN: 1. Elevate operative extremity. 2. Ice, acetominphen or ibuprofen PRN. 3. Oxycodone and Vistaril for pain as needed. 4. Follow up with his PA visit in 7 days with OT visit ideally to follow that. Splint removal, Orthoplast splint application so that the patient can shower but should otherwise wear the Orthoplast splints 23.5 hours per day as if they were more secure splints or casts. Then follow-up with me at the 3-4 week fatou with repeat radiographs-PA and fossa lateral views bilateral wrists.
--- NOTE | 2023-04-11 12:35 | P.ANES_ITS ---
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
[2023-04-11] MEDS: LACTATED RINGERS 1000 ML 1,000 ML 75 ML IV (15:45)
--- NOTE | 2023-04-11 18:14 | P.NB_ITS ---
Nerve Block Nerve Block Time Seen by Provider: 09:30 Date Seen: 04/11/23 Type of block requested by surgeon for post-operative analgesia: axillary Side: left Time out performed: Yes Verification of patient name: Yes Verification of date of : Yes Site marking: site marked Name of person performing procedure: Yaya Jerry Continuous monitoring Was continuous monitoring of O2 sat, B/P, property assessment monitor, recorded every 15 minutes?: Yes Procedure Checklist: sterile prep, needles and gloves Ultrasound guided. Images saved: Yes Medications given in 5ml increments after negative aspiration: Ropivicaine %: 0.5 mL: 20 Needle gauge: 20 Decadron (mg): 10 Precedex (mcg): 25 Patient tolerated procedure well: Yes Additional comments: Injected in 5mL increments after negative aspiration Block Charges Block Charge (with Pro Fee): Axillary Nerve Use of Ultrasound Machine for Block: Yes- US Guidance/pain block
--- NOTE | 2023-04-11 23:10 | PC.NURSE ---
Shift note [id number]: Pt able to transfer/ambulate in room well with SBA. She is alert & oriented x 4 and able to make needs known. VSS and pt has been afebrile. IV to R upper arm patent and SL per order due to tolerating po fluids. Pt tolerating po food and fluids and ate 75% of supper. No CP, shortness of breath or N/V noted this shift. SCDs and ERMIAS stockings worn to BLEs. Pt reports left hand/wrist is still numb due to nerve block used to this area during surgery- fingers noted to be warm and pt able to move fingers to bilateral hands without difficulty. Capillary refill <3 seconds to bilateral hands. Dressings/MALLIKA wraps to bilateral wrists C/D/I with sling worn to LUE. Pt reports she has no pain to left wrist when asked and has been rating pain to R wrist 1-2/10 this shift with one dose of PRN IV Dilaudid administered which was effective upon reassessment. Pt reports 1/10 pain to R wrist manageable with ice packs provided and she states she will request PRN medication if needed. Pt has been continent of bladder with last BM of 04/10/23.
[2023-04-12] MEDS: OxyCODONE/APAP 5-325 TABLET PO ×2 (01:23→08:20)
[2023-04-12 03:54] VITALS: BP 112/64; PULSE 68; RESP 16; TEMP 37.2; O2SAT 94
[2023-04-12] MEDS: OMEPRAZOLE 20 MG CAPSULE DR PO (06:14)
--- NOTE | 2023-04-12 06:53 | PC.NURSE ---
End of shift [id number]: A&O pleasant and cooperative. VSS w/ sats 90% on RA. CMS intact. Pt reports no feeling in left hand or arm but able to wiggle fingers. Hands are warm to touch. 1-5/10 pain reported in right wrist. See eMAR for intervention. Ice placed on right wrist. Arms elevated. Dressings to arms c/d/i. SBA to bathroom.
--- NOTE | 2023-04-12 12:30 | PC.NURSE ---
shift note: pt up sba to bathroom. pt rating pain 6/10 rt wrist. pt medicated with prn meds with relief. radial pulses intact. fingers bilat hands swollen with cap refill + bilat. ice to bilat wrist and wrists elevated. selma wraps intact bilat. IV dc'd intact rt upper bicept. Reviewed dc instructions and copies sent. Belongings sent with pt at dc. 2 extra ice packs sent with pt at dc
== END 2023-04-12 12:00 | disposition home or self-care (01) ==
LOC: ED 19:58 → SS 21:43 → MEDSURG 21:43
PROVIDERS: Internal Medicine; Emergency Provider Emergency Medicine Emergency Medical Services; Visit Provider Orthopaedic Surgery Sports Medicine
PROC: (CPT 25575; principal; 2023-04-11 09:30)
PROC: (CPT 25575; 2023-04-11 09:30)
DX: S52.571A Other intraarticular fracture of lower end of right radius, initial encounter for closed fracture (principal); S52.572A Other intraarticular fracture of lower end of left radius, initial encounter for closed fracture; W00.0XXA Fall on same level due to ice and snow, initial encounter; G89.18 Other acute postprocedural pain
CPT/HCPCS: 25609; 01830; 36415; 64417; 73110; 76000; 76942; 80069; 85027; 97110; 97112; 97161; 97165; 97530; 97535; 99140; 99284; A4580; A9270; C1713; J0330; J0665; J0690; J1100; J1170; J1885; J2250; J2405; J2704; J2795; J3010; J7030; J7120

== ENCOUNTER 2023-06-29 16:00 | Outpatient (RCR) | payer OTHER, SELFPAY | END 2023-10-27 23:59 | disposition home or self-care (01) | PROVIDERS: Visit Provider Orthopaedic Surgery Sports Medicine | DX: Z98.890 Other specified postprocedural states (principal); Z51.89 Encounter for other specified aftercare | CPT/HCPCS: 97110; 97140; 97166; L3906; X5282 ==